=== PATIENT | male | born 1980 | race Caucasian/White ===

== ENCOUNTER 2017-05-31 10:06 | Emergency (ER) | payer OTHER ==
[2017-05-31] MEDS ORDERED: NICOTINE 21MG/24HR PATCH TRANSDERM STA (10:44)
[2017-05-31 11:27] LABS: ALT 74 U/L (21-72); AST 110 U/L (17-59); Alkaline Phosphatase 104 U/L (38-126); Anion Gap 19 mmol/L; Blood Urea Nitrogen 15 mg/dL (9-20); Carbon Dioxide 27 mmol/L (22-30); Chloride 105 mmol/L (98-107); Glucose 103 mg/dL (74-99); Potassium 4.3 mmol/L (3.5-5.1); Sodium 151 mmol/L (137-145); Total Bilirubin 0.4 mg/dL (0.2-1.3); Total Protein 7.8 g/dL (6.3-8.2)
[2017-05-31 11:31] LABS: Basophils % (A) 1 %; Eosinophils # (A) 0.1 k/uL (0-0.7); Eosinophils % (A) 2 %; HCT 44.3 % (39.0-53.0); HGB 14.6 gm/dL (13.0-17.5); Lymphocytes # (A) 2.5 k/uL (1.0-4.8); Lymphocytes % (A) 47 %; MCH 28.2 pg (25.0-35.0); MCHC 32.9 g/dL (31.0-37.0); MCV 85.8 fL (80.0-100.0); Monocytes # (A) 0.3 k/uL (0-1.0); Monocytes % (A) 5 %; Neutrophils # (A) 2.2 k/uL (1.3-7.7); Neutrophils % (A) 43 %; Platelet Count 140 k/uL (150-450); RBC 5.17 m/uL (4.30-5.90); RDW 14.6 % (11.5-15.5); WBC 5.2 k/uL (3.8-10.6)
[2017-05-31 11:42] LABS: Alcohol 376 mg/dL
[2017-05-31 12:51] VITALS: TEMP 97.1
[2017-05-31] MEDS ORDERED: clonazePAM 0.5 MG TAB PO STA (13:01)
[2017-05-31] MEDS ORDERED: ESCITALOPRAM 10 MG TAB PO STA (13:02)
[2017-05-31] MEDS ORDERED: SODIUM CHLORIDE 0.45% 1,000 ML IV SCH (13:15)
[2017-05-31] MEDS ORDERED: ONDANSETRON 4 MG/2 ML VIAL IVP STA (13:25)
[2017-05-31] MEDS ORDERED: DIAZEPAM 5 MG/ML 2 ML INJ IVP STA (13:26)
--- NOTE | 2017-05-31 13:32 | ED ---
Alcohol HPI - General Chief Complaint: Alcohol Stated Complaint: Alcohol Detox Time Seen by Provider: 05/31/17 10:34 Source: patient Mode of arrival: ambulatory Limitations: no limitations - History of Present Illness Initial Comments: This 36-year-old white male presents with mother with the complaint of alcohol abuse. He apparently has been drinking alcohol daily for 20 years. He states that he normally goes through at least a case of beer per day but also has been drinking hard liquor as well. They apparently went to [facility] this morning and they were unable to admit him to their hospital but he has an appointment in 9 days for rehab. He is requesting help with stopping drinking. He states that he feels jittery. He feels anxious and nauseated at times. He did drink this morning. There is no other medical complaints. No other psychiatric complaints. No other modifying factors. He apparently has gone through rehab previously at [place] with some success but eventually relapses. - Related Data Home Medications Medication Instructions Recorded Confirmed Escitalopram [Lexapro] 10 mg PO DAILY 05/31/17 05/31/17 clonazePAM [KlonoPIN] 0.5 mg PO Q12H PRN 05/31/17 05/31/17 Previous Rx's Medication Instructions Recorded Diazepam [Valium] 10 mg PO TID PRN #30 tablet 05/31/17 Ondansetron [Zofran ODT] 8 mg PO Q8HR PRN #12 tab 05/31/17 Allergies Allergy/AdvReac Type Severity Reaction Status Date / Time amoxicillin Allergy Rash/Hives Verified 05/31/17 10:45 cefaclor [From Ceclor] Allergy Rash/Hives Verified 05/31/17 10:45 Penicillins Allergy Rash/Hives Verified 05/31/17 10:45 Review of Systems ROS Statement: Those systems with pertinent positive or pertinent negative responses have been documented in the HPI. ROS Other: All systems not noted in ROS Statement are negative. Past Medical History Additional Past Medical History / Comment(s): ETOH abuse History of Any Multi-Drug Resistant Organisms: None Reported Past Surgical History: No Surgical Hx Reported Past Psychological History: ADD/ADHD, Anxiety, Depression Smoking Status: Current every day smoker Past Alcohol Use History: Abuse, Heavy Past Drug Use History: None Reported General Exam - General Exam Comments Initial Comments: GENERAL: The patient is well nourished and well hydrated. VITAL SIGNS: Heart rate, blood pressure, respiratory rate reviewed as recorded in nurse's notes. EYES: Pupils are round and reactive. Extraocular movements are intact. No conjunctival / lid redness or swelling. ENT: No external evidence of injury, swelling, or ecchymosis. Airway is patent. Throat is clear. NECK: Nontender. No swelling or evidence of injury. No subcutaneous emphysema. Trachea is midline. No thyroid mass. HEART: Regular rate and rhythm. Good peripheral pulses. LUNGS/CHEST: Breath sounds clear and equal bilaterally. No rales, rhonchi, or wheezes. No ecchymosis, subcutaneous emphysema, or tenderness. ABDOMEN: Abdomen soft without tenderness. No palpable masses or organomegaly. No peritoneal signs. No abdominal wall swelling or ecchymosis. EXTREMITIES: No extremity tenderness. Normal muscle tone and function. No thoracolumbar tenderness. NEUROLOGIC: Sensation is grossly intact. Cranial nerve exam reveals face is symmetrical, tongue is midline, speech is clear. SKIN: No abrasions or ecchymosis is noted. No induration or masses noted. PSYCHIATRIC: Alert and oriented. Appears anxious at times. Limitations: no limitations Course Vital Signs 05/31/17 05/31/17 10:11 12:50 Temperature 99.1 F 97.1 F L Pulse Rate 113 H 105 H Respiratory 20 18 Rate Blood Pressure 182/100 162/100 O2 Sat by Pulse 96 Oximetry Medical Decision Making - Medical Decision Making The patient was seen and examined. All diagnostics were reviewed. His alcohol level is significantly elevated. His sodium is slightly elevated at 151. The case is discussed with Dr. Killian who relates that he likes to utilize Valium for outpatient treatment of alcohol withdrawal. The patient states that he does not want to drink alcohol anymore. He is willing to try the Valium. He is counseled regarding this plan and ultimately detail. His mother is present and is a nurse and understands as well. They understand that he is not utilizes clonidine well he is on the Valium as these are similar medications. They both understand that he is not to drink any alcohol while on the Valium. He is still going to continue with his appointment at [place] rehab in 9 days. They're instructed to return if symptoms do worsen. - Lab Data Result diagrams: 05/31/17 11:10 05/31/17 11:10 Lab Results 05/31/17 05/31/17 Range/Units 11:10 11:10 WBC 5.2 (3.8-10.6) k/uL RBC 5.17 (4.30-5.90) m/uL Hgb 14.6 (13.0-17.5) gm/dL Hct 44.3 (39.0-53.0) % MCV 85.8 (80.0-100.0) fL MCH 28.2 (25.0-35.0) pg MCHC 32.9 (31.0-37.0) g/dL RDW 14.6 (11.5-15.5) % Plt Count 140 L (150-450) k/uL Neutrophils % 43 % Lymphocytes % 47 % Monocytes % 5 % Eosinophils % 2 % Basophils % 1 % Neutrophils # 2.2 (1.3-7.7) k/uL Lymphocytes # 2.5 (1.0-4.8) k/uL Monocytes # 0.3 (0-1.0) k/uL Eosinophils # 0.1 (0-0.7) k/uL Basophils # 0.0 (0-0.2) k/uL Sodium 151 H (137-145) mmol/L Potassium 4.3 (3.5-5.1) mmol/L Chloride 105 (98-107) mmol/L Carbon Dioxide 27 (22-30) mmol/L Anion Gap 19 mmol/L BUN 15 (9-20) mg/dL Creatinine 0.74 (0.66-1.25) mg/dL Est GFR (CKD-EPI)AfAm >90 (>60 ml/min/1.73 sqM) Est GFR (CKD-EPI)NonAf >90 (>60 ml/min/1.73 sqM) Glucose 103 H (74-99) mg/dL Calcium 9.0 (8.4-10.2) mg/dL Total Bilirubin 0.4 (0.2-1.3) mg/dL AST 110 H (17-59) U/L ALT 74 H (21-72) U/L Alkaline Phosphatase 104 (38-126) U/L Total Protein 7.8 (6.3-8.2) g/dL Albumin 5.0 (3.5-5.0) g/dL Serum Alcohol 376 mg/dL Disposition Clinical Impression: Alcoholic intoxication, Alcohol abuse Disposition: HOME SELF-CARE Condition: Good Instructions: Alcohol Intoxication (ED), Alcohol Withdrawal (ED) Additional Instructions: Please follow-up with Dr. Killian or Dr. Zamora in the office tomorrow. Please do not take the Klonopin well on the Valium. Please avoid any further alcohol usage. Prescriptions: Diazepam [Valium] 10 mg PO TID PRN #30 tablet PRN Reason: withdrawal symptoms Ondansetron [Zofran ODT] 8 mg PO Q8HR PRN #12 tab PRN Reason: Nausea Referrals: Rich Zamora MD [Primary Care Provider] - 1-2 days Time of Disposition: 13:30
[2017-05-31 14:23] VITALS: BP 155/90; PULSE 96; RESP 16
== END 2017-05-31 14:22 | disposition home or self-care (01) ==
LOC: EC 10:06
DX: F10.120 Alcohol abuse with intoxication, uncomplicated (principal); F41.9 Anxiety disorder, unspecified; F32.9 Major depressive disorder, single episode, unspecified; F17.200 Nicotine dependence, unspecified, uncomplicated; Z79.899 Other long term (current) drug therapy; Z88.0 Allergy status to penicillin; Z88.1 Allergy status to other antibiotic agents; Y90.8 Blood alcohol level of 240 mg/100 ml or more
CPT/HCPCS: 82075; 36415; 80053; 85025; 80320; 99283; 96374; 96375; S4990; J3360; J2405

== ENCOUNTER 2019-06-10 08:17 | Emergency (ER) | payer OTHER ==
[2019-06-10 08:25] VITALS: RESP 18; TEMP 98
[2019-06-10] MEDS ORDERED: PROPARACAINE 0.5% OPHTH DROPS 15 ML BTL RIGHT EYE STA (08:42)
[2019-06-10] MEDS ORDERED: FLUORESCEIN STRIPS 1 MG STRIP BOTH EYES ONE (08:43)
--- NOTE | 2019-06-10 08:46 | ED ---
Eye Problem HPI - General Chief complaint: Eye Problems Stated complaint: eye problem Time Seen by Provider: 06/10/19 08:23 Source: patient, RN notes reviewed Mode of arrival: ambulatory Limitations: no limitations - History of Present Illness Initial comments: This is a 30-year-old male who states he woke up this morning felt some irritation in his right eye he rubbed it thinking it was something that he could not get anything out he believes there is something underneath his upper eyelid. He is not sure what appeared be he's had no recent exposure to dust or dirt sawdust. No visual changes. He did try to flush his eye out and states he was unsuccessful. No contact lens MD chief complaint: eye redness, foreign body - Related Data Home Medications Medication Instructions Recorded Confirmed Escitalopram [Lexapro] 10 mg PO DAILY 05/31/17 05/31/17 clonazePAM [KlonoPIN] 0.5 mg PO Q12H PRN 05/31/17 05/31/17 Previous Rx's Medication Instructions Recorded Diazepam [Valium] 10 mg PO TID PRN #30 tablet 05/31/17 Ondansetron [Zofran ODT] 8 mg PO Q8HR PRN #12 tab 05/31/17 Sulfacetamide 10% Ophth Soln 2 drops RIGHT EYE Q8H 7 Days #3 ml 06/10/19 [Bleph-10] Allergies Allergy/AdvReac Type Severity Reaction Status Date / Time amoxicillin Allergy Rash/Hives Verified 06/10/19 08:24 cefaclor [From Ceclor] Allergy Rash/Hives Verified 06/10/19 08:24 Penicillins Allergy Rash/Hives Verified 06/10/19 08:24 Review of Systems ROS Statement: Those systems with pertinent positive or pertinent negative responses have been documented in the HPI. ROS Other: All systems not noted in ROS Statement are negative. Past Medical History Additional Past Medical History / Comment(s): ETOH abuse History of Any Multi-Drug Resistant Organisms: None Reported Past Surgical History: No Surgical Hx Reported Past Psychological History: ADD/ADHD, Anxiety, Depression Smoking Status: Current every day smoker Past Alcohol Use History: Abuse, Heavy Past Drug Use History: None Reported General Exam - General Exam Comments Initial Comments: This is a well-developed well-nourished awake alert oriented times 3 male Limitations: no limitations General appearance: alert, in no apparent distress Head exam: Present: atraumatic, normocephalic, normal inspection Eye exam: Present: PERRL, EOMI, conjunctival injection Pupils: Present: normal accommodation (Some evidence of erythema inflammatory response to the upper eyelid no foreign body seen on gross examination) Neck exam: Present: normal inspection, full ROM Extremities exam: Present: normal inspection Back exam: Present: full ROM Neurological exam: Present: alert, oriented X3, CN II-XII intact Psychiatric exam: Present: normal affect, normal mood Skin exam: Present: warm, dry, intact, other (Mild erythema seen to the upper right eyelid is noted above.). Absent: rash Course Vital Signs 06/10/19 08:22 Temperature 98.0 F Pulse Rate 92 Respiratory 18 Rate Blood Pressure 178/108 O2 Sat by Pulse 99 Oximetry Procedures - Procedures Initial comment: The right eye was initially examined with gross inspection and ophthalmoscope. No gross foreign body seen no obvious deformity I did tell injection is evident with upper lid inflammatory changes and slight edema. I did instill Alcaine drops for anesthesia followed by fluorescein. Examination with a Wood lamp revealed no evidence of foreign body on the cornea no abrasions noted. There was some evidence of abrasion to the sclera just superior to the midline right area. Eversion of the eyelids nothing seen on the lower eyelid evidence of foreign body seen to the upper eyelid this is removed using a moistened cotton swab. Reinspection with a slit lamp revealed no evidence of residual foreign body some mild edema seen to the cornea. The patient tolerated this well. Medical Decision Making - Medical Decision Making I did evaluate patient's right eye using Wood lamp and slit lamp after it was anesthetized. Foreign maternal removed from the upper eyelid.. Patient did tolerate this well he'll be discharged with antibiotic drops for the upper lid blepharitis. Disposition Clinical Impression: Blepharitis of eyelid of right eye, Foreign body of eye, external, right, Co njunctivitis Disposition: HOME SELF-CARE Condition: Good Instructions (If sedation given, give patient instructions): Eye Foreign Body (ED), Blepharitis (ED), Conjunctivitis (ED) Prescriptions: Sulfacetamide 10% Ophth Soln [Bleph-10] 2 drops RIGHT EYE Q8H 7 Days #3 ml Is patient prescribed a controlled substance at d/c from ED?: No Referrals: Jacoby Wray Jr, DO [Primary Care Provider] - 1-2 days
[2019-06-10 09:26] VITALS: BP 148/98; PULSE 85
== END 2019-06-10 09:21 | disposition home or self-care (01) ==
LOC: EC 08:17
DX: H01.001 Unspecified blepharitis right upper eyelid (principal); T15.01XA Foreign body in cornea, right eye, initial encounter; H10.9 Unspecified conjunctivitis; F17.200 Nicotine dependence, unspecified, uncomplicated; F10.10 Alcohol abuse, uncomplicated; F41.9 Anxiety disorder, unspecified; F32.9 Major depressive disorder, single episode, unspecified; F90.9 Attention-deficit hyperactivity disorder, unspecified type; Z79.899 Other long term (current) drug therapy; Z88.0 Allergy status to penicillin; Z88.1 Allergy status to other antibiotic agents; W45.8XXA Other foreign body or object entering through skin, initial encounter
CPT/HCPCS: 67938; 99283